=== PATIENT | male | born 1950 | race Caucasian/White ===

== ENCOUNTER → 2016-11-05 | Day surgery (SDC) | payer MEDICARE, BC ==
[~2016-11-05] VITALS: Ht 177.8 cm; Wt 96.5 kg
[~2016-11-05] MED LIST: *RESP: ALBUTEROL 2.5 MG/3 ML NEB (PRN) PERIprocedural Use ONLY NEB ONE; CEPH-459 PO; DEXAMETHASONE SOD PHOS 4 MG/ML VIAL ONE; DO NOT ADM ANY ANTICOAGULANT DRUGS XX PRN; FINA5TAB2 PO; INSULIN HUMAN REGULAR 1,000 UNITS/10 ML VIAL SQ PRN; IOHEXOL 350 MG/ML 10 ML VIAL (for RAD DIAG) ONE; LACTATED RINGER'S 1000 ML IV SCH; METF500 PO; METOPROLOL TARTRATE 25 MG TAB PO PRN; MIDAZOLAM HCL 2 MG/2 ML VIAL ONE; NAPR500T PO; ONDANSETRON HCL 4 MG/2 ML VIAL IV PUSH PRN; PERC5TAB12 PO; PROPOFOL 200 MG/20 ML AMP IV ONE; PROS5TAB PO; SODIUM CHLORID 0.9% 500 ML IV SCH; VITA500030 PO; ceFAZolin 2 GM PREMIX 50 ML IV SCH; ePHEDrine/NS 50 MG/5 ML SYR IV ONE; oxyCODONE/ACETAMINOPHEN 5 MG/325 MG TAB PO PRN
[2016-11-05 06:00] VITALS: BP 121/76; PULSE 71; RESP 20; TEMP 97.8; O2SAT 96
[2016-11-05 06:54] LABS: AUTOMATED NEUTROPHIL # 3.6 TH/MM3 (1.8-7.7); BASOPHIL # 0.1 TH/MM3 (0-0.2); BASOPHIL % 0.9 % (0.0-2.0); EOSINOPHIL # 0.1 TH/MM3 (0-0.4); EOSINOPHIL % 2.1 % (0.0-4.0); HEMO FLAGS DIFF FINAL; LYMPH % 26.1 % (9.0-44.0); LYMPHOCYTE # 1.6 TH/MM3 (1.0-4.8); MEAN CELL VOLUME 90.6 FL (80.0-100.0); MEAN CORPUSCULAR HEMOGLOBIN 30.6 PG (27.0-34.0); MEAN CORPUSCULAR HGB CONC 33.8 % (32.0-36.0); MONO % 11.5 % (0.0-8.0); NEUT % 59.4 % (16.0-70.0); PLATELET COUNT 207 TH/MM3 (150-450); RED BLOOD COUNT 4.74 MIL/MM3 (4.50-5.90)
[2016-11-05 11:44] VITALS: BP 153/87; PULSE 79; RESP 20; TEMP 97.4; O2SAT 99
--- NOTE | 2016-11-07 19:35 | MP ---
cc: WU MCGARRY MD DATE OF SURGERY: 11/05/2016 INDICATIONS FOR PROCEDURE Case of a pleasant 66-year-old gentleman with multiple right ureteral calculi who presents today for right ureteroscopy with laser lithotripsy. PREOPERATIVE DIAGNOSIS Multiple right distal ureteral calculi. POSTOPERATIVE DIAGNOSIS: Multiple right distal ureteral calculi. ATTENDING SURGEON Dr. Mcgarry. ANESTHESIA: General. PROCEDURES PERFORMED Cystoscopy, right retrograde pyelogram, removal, right ureteral stent, right ureteroscopy with laser lithotripsy and right ureteral catheter insertion. COMPLICATIONS None. ESTIMATED BLOOD LOSS Minimal SPECIMENS Right ureteral stent which was discarded. OPERATIVE PROCEDURE IN DETAIL The patient was brought to the operating room suite and placed supine on the cystoscopy table. He was then placed under general anesthesia he was then repositioned in the dorsal lithotomy position and prepped and draped in normal sterile fashion after an appropriate time-out was undertaken I proceeded with cystoscopic evaluation utilizing the rigid cystoscope with the 20-Liberian sheath and 30 degrees lens. The urethra was patent without stricture formation. The prostatic urethra was moderately obstructing with enlargement of the lateral lobes and some enlargement to the median lobe. Further passive cystoscope within the urinary bladder revealed both right and left ureteral orifices being correct anatomic position. There was a right stent protruding from the right orifice. Next, I proceeded with passing a sensor 0.035 wire up the patient's right ureter alongside the previously placed stent. The wire was easily advanced up into the right kidney. Next, the cystoscope was reintroduced and using a flexible grasper was able to easily withdraw the right ureteral stent. The stent was carefully inspected to ascertain that no stent fragments were left behind the stent was then discarded. Next, I proceeded with ureteroscopic evaluation utilizing the rigid ureteroscope alongside the previously passed wire. The scope was easily advanced and was able to easily see the obstructing distal right ureteral stones. These were broken down into multiple smaller pieces with the holmium laser utilizing the 200 micron fiber. Once the stones were broken down to smaller fragments the 2.4 Liberian stone basket was utilized to retrieve the stone fragments several of them were sent off for chemical composition analysis. Next, ureteroscope was withdrawn. I reintroduced the cystoscope and advanced a 6-Liberian open-ended renal catheter over the previously passed wire and the wire was withdrawn. A right retrograde pyelogram study was then performed to outline the collecting system. The open-ended catheter was then withdrawn and there was prompt drainage of contrast noted. I next reintroduce the sensor wire up into the right kidney and this time passed the open-ended catheter all the way up to the kidney and the wire was withdrawn. Next a 16-Liberian Gonzalez catheter was placed within the urinary bladder and the open-ended catheter was anchored to the Gonzalez by a connector. Both catheters were then placed to gravity drainage. The patient was next transferred to the PACU in satisfactory condition having tolerated the procedures well. MD LIT Aranda/lacey /9:49 AM /7:24 PM
== END | disposition home or self-care (01) ==
LOC: HSDC 05:46
PROVIDERS: ATTEND Urology
DX: N20.1 Calculus of ureter (principal); E11.9 Type 2 diabetes mellitus without complications
CPT/HCPCS: 00862; 52353; 74420; 82370; 85025; 88300; 94664; C1769; J1100; J2250; J3010; J7120; J7613; Q9967